=== PATIENT | female | born 1960 | race Caucasian/White ===

== ENCOUNTER 2017-01-03 10:40 | Emergency (ER) | payer BC ==
[~2017-01-03] VITALS: Ht 157.5 cm; Wt 53.1 kg
[2017-01-03 10:40] VITALS: BP_SYST 145
[2017-01-03] MEDS ORDERED: DIAZEPAM 5 MG TABLET (VALIUM) PO ONE (11:15)
[2017-01-03] MEDS ORDERED: KETOROLAC TROMETHAMINE 60 MG/2 ML VIAL IM ONE (11:15)
[2017-01-03] MEDS ORDERED: OXYCODONE/ACETAMINOPHEN *10*mg/325 mg TABLET PO ONE (11:15)
[2017-01-03 13:23] VITALS: BP_SYST 137
== END 2017-01-03 13:23 | disposition home or self-care (01) ==
LOC: SED 10:40
DX: G89.29 Other chronic pain (principal); M54.5 Low back pain; M54.2 Cervicalgia
CPT/HCPCS: 72050; 72072; 72110; 96372; 99284; J1885

== ENCOUNTER 2019-10-14 09:54 | Emergency (ER) | payer BC ==
[~2019-10-14] VITALS: Ht 157.5 cm; Wt 57.6 kg
[2019-10-14 09:55] VITALS: BP_SYST 127
[2019-10-14 10:57] VITALS: BP_SYST 127
== END 2019-10-14 10:56 | disposition home or self-care (01) ==
LOC: SED 09:54
DX: S63.8X2A Sprain of other part of left wrist and hand, initial encounter (principal); W22.8XXA Striking against or struck by other objects, initial encounter; Y93.01 Activity, walking, marching and hiking; Y92.89 Other specified places as the place of occurrence of the external cause; Y99.8 Other external cause status
CPT/HCPCS: 99283; J7030

== ENCOUNTER 2020-11-07 09:30 | Emergency (ER) | payer BC ==
[~2020-11-07] VITALS: Ht 157.5 cm; Wt 49.0 kg
[2020-11-07 09:35] VITALS: BP_SYST 114
--- NOTE | 2020-11-07 09:40 | NUR ---
Placed in room 7 . Placed on school bus monitor, blood pressure machine and pulse oximeter. To gown for exam. Side rails up.
[2020-11-07] MEDS ORDERED: EPINEPHrine 1 MG/ML AMP IM ONE (10:00)
--- NOTE | 2020-11-07 10:00 | NUR ---
ER DR. KOTHARI AT THE BEDSIDE EXAMINING PT
--- NOTE | 2020-11-07 10:05 | NUR ---
PT CAME IN FROM HOME C/O FACIAL SWELLING, REDNESS AND ITCHINESS TO SCALP, EYES, EARS X 1.5 WEEKS. STATES SHE WAS IN [place] IN [place]. UNSURE WHAT SHE CAME IN CONTACT WITH. SAYS SYMPTOMS HAVE GOTTEN WORSE SINCE. PT IS AMBULATORY, AAOX4, V/S STABLE
--- NOTE | 2020-11-07 10:25 | NUR ---
LAB AT THE BEDSIDE FOR BLOOD DRAW
[2020-11-07 10:35] LABS: BASOPHILS % (AUTO) 0.4 % (0.0-2.0); EOSINOPHILS % (AUTO) 0.1 % (0.0-4.0); HEMATOCRIT 39.7 % (36-48); HEMOGLOBIN 13.7 g/dL (12.0-16.0); LYMPHOCYTES # (AUTO) 0.9 K/uL (1.0-5.5); MEAN CORPUSCULAR HEMOGLOBIN 32 pg (27-31); MEAN CORPUSCULAR HGB CONC 35 % (32-36); MEAN CORPUSCULAR VOLUME 91 fL (79.0-98.0); MONOCYTES # (AUTO) 0.7 K/uL (0.0-1.0); MONOCYTES % (AUTO) 7.1 % (1.7-9.3); NEUTROPHILS # (AUTO) 7.6 K/uL (1.8-7.7); NEUTROPHILS % (AUTO) 82.4 % (40.0-70.0); PLATELET COUNT (AUTO) 206 K/uL (130-430); RED BLOOD CELL COUNT(AUTO) 4.37 MIL/uL (4.2-6.2); RED CELL DISTRIBUTION WIDTH 14.3 % (9.0-15.0); WHITE BLOOD COUNT (AUTO) 9.3 K/uL (4.8-10.8)
[2020-11-07 10:48] LABS: CALCIUM 9.2 mg/dL (8.4-11.0); CREATININE 0.81 mg/dL (0.55-1.30); POTASSIUM 3.5 mmol/L (3.5-5.1)
--- NOTE | 2020-11-07 10:49 | NUR ---
PT REPORTS IMPROVEMENT IN ITCHINESS AND REDNESS AND SWELLING HAVE DECREASED
[2020-11-07 10:53] LABS: TOTAL BILIRUBIN 0.5 mg/dL (0.0-1.0)
[2020-11-07 11:25] LABS: C-REACTIVE PROTEIN QUANT 19.3 mg/dL (0-0.5)
[2020-11-07] MEDS ORDERED: PRED10TA PO (11:42)
[2020-11-07] MEDS ORDERED: DIPH25CA83 PO (11:42)
[2020-11-07 11:52] VITALS: BP_SYST 114
--- NOTE | 2020-11-07 11:54 | NUR ---
Patient given written and verbal discharge instructions and verbalizes understanding. ER MD discussed with patient the results and treatment provided. Patient in stable condition. ID arm band removed. Rx of BENADRYL AND PREDNISONE given. Patient educated on pain management and to follow up with PMD. Pain Scale 0/10. Opportunity for questions provided and answered. Medication side effect fact sheet provided.
[2020-11-08] MEDS ORDERED: EPIN0.3P3 IM (18:00)
[2020-11-08] MEDS ORDERED: PRED20TA PO (18:00)
== END 2020-11-07 11:52 | disposition home or self-care (01) ==
LOC: SED 09:30
DX: L25.9 Unspecified contact dermatitis, unspecified cause (principal)
CPT/HCPCS: 36415; 80053; 85025; 86140; 96372; 99283; J0171

== ENCOUNTER 2020-11-08 15:11 | Emergency (ER) | payer BC ==
[~2020-11-08] VITALS: Ht 157.5 cm; Wt 57.6 kg
[~2020-11-08 15:11] MED LIST: DIPH25CA83 PO; PRED10TA PO
[2020-11-08 15:25] VITALS: BP_SYST 117
--- NOTE | 2020-11-08 15:25 | NUR ---
Patient to ER bed 02 to gown for evaluation. Side rails up.
--- NOTE | 2020-11-08 15:30 | NUR ---
Pt brought by , A&Ox4, pt presents to ER with facial swelling and redness x 7 days, pt afebrile, 02 WNL, skin pink and warm, cap refill <3.
[2020-11-08] MEDS ORDERED: FAMOTIDINE PF 20 MG/2 ML VIAL IVP ONE (16:00)
[2020-11-08] MEDS ORDERED: methylPREDNISolone SOD SUCC/PF 62.5 MG/ML VIAL IVP ONE (16:00)
--- NOTE | 2020-11-08 16:10 | NUR ---
DR HESTER IN TO ASSESS
--- NOTE | 2020-11-08 16:30 | NUR ---
C/O FACIAL SWELLING 5 DAYS WITH VISIT TO ER YESTERDAY, INCREASED SWELLING TODAY, NO DIFFICULTY BREATHING, RESP UNLABORED, SKIN WARM AND DRY REDNESS AND SWELLING TO EYES AND FACE
--- NOTE | 2020-11-08 16:59 | NUR ---
COMMUNICATES CLEARLY, DNIES SOB/CP/ AT BEDSIDE
[2020-11-08 17:56] VITALS: BP_SYST 136
--- NOTE | 2020-11-08 17:57 | NUR ---
Patient given written and verbal discharge instructions and verbalizes understanding. ER MD discussed with patient the results and treatment provided. Patient in stable condition. ID arm band removed. IV catheter removed intact and dressing applied, no active bleeding. Rx of given. Patient educated on pain management and to follow up with PMD. Pain Scale 0/10 Opportunity for questions provided and answered. Medication side effect fact sheet provided.
[2020-11-08] MEDS ORDERED: EPIN0.3P3 IM (18:00)
[2020-11-08] MEDS ORDERED: PRED20TA PO (18:00)
== END 2020-11-08 17:56 | disposition home or self-care (01) ==
LOC: SED 15:11
DX: T78.40XA Allergy, unspecified, initial encounter (principal); Z79.899 Other long term (current) drug therapy; X58.XXXA Exposure to other specified factors, initial encounter
CPT/HCPCS: 96374; 96375; 99284; J2930; J3490

== ENCOUNTER 2021-01-29 11:13 | Emergency (ER) | payer BC ==
[~2021-01-29] VITALS: Ht 157.5 cm; Wt 45.8 kg
[~2021-01-29 11:13] MED LIST changes: +EPIN0.3P3 IM; +PRED20TA PO
[2021-01-29 11:39] VITALS: BP_SYST 123
--- NOTE | 2021-01-29 12:05 | NUR ---
PLACED INBED 7, EXAMINED BY DR. KOTHARI
[2021-01-29 12:24] LABS: BASOPHILS % (AUTO) 0.6 % (0.0-2.0); EOSINOPHILS # (AUTO) 0.1 K/uL (0.0-0.4); EOSINOPHILS % (AUTO) 0.7 % (0.0-4.0); HEMATOCRIT 41.6 % (36-48); HEMOGLOBIN 14.1 g/dL (12.0-16.0); LYMPHOCYTES # (AUTO) 1.7 K/uL (1.0-5.5); LYMPHOCYTES % (AUTO) 23.3 % (20.5-51.5); MEAN CORPUSCULAR HEMOGLOBIN 31 pg (27-31); MEAN CORPUSCULAR HGB CONC 34 % (32-36); MEAN CORPUSCULAR VOLUME 93 fL (79.0-98.0); MONOCYTES # (AUTO) 0.5 K/uL (0.0-1.0); MONOCYTES % (AUTO) 7.6 % (1.7-9.3); NEUTROPHILS # (AUTO) 4.8 K/uL (1.8-7.7); NEUTROPHILS % (AUTO) 67.8 % (40.0-70.0); PLATELET COUNT (AUTO) 300 K/uL (130-430); RED CELL DISTRIBUTION WIDTH 13.8 % (9.0-15.0); WHITE BLOOD COUNT (AUTO) 7.1 K/uL (4.8-10.8)
[2021-01-29 12:38] LABS: ANION GAP 7 (5-15); CALCIUM 8.6 mg/dL (8.4-11.0); CHLORIDE 102 mmol/L (98-107); CREATININE 0.84 mg/dL (0.55-1.30); GLUCOSE 104 mg/dL (70-99); POTASSIUM 4.1 mmol/L (3.5-5.1); SODIUM SERUM 134 mmol/L (136-145); UREA NITROGEN, BLOOD 15 mg/dL (8-21)
--- NOTE | 2021-01-29 12:49 | NUR ---
Pt. came in today with complaints of multiple intact sores to top of head that are itchy and painful 09/17, stated it started about 4 to 6 weeks ago and now has hair loss, has been taking aleve for pain and nothing for the itchiness, sores vissible and hair loss signifigant
[2021-01-29 12:51] LABS: ALANINE AMINOTRANSFERASE 17 U/L (12-78); ALBUMIN 4.2 g/dL (3.4-4.8); ASPARTATE AMINOTRANSFERASE 14 U/L (10-37); TOTAL BILIRUBIN 0.2 mg/dL (0.0-1.0)
[2021-01-29 13:07] LABS: C-REACTIVE PROTEIN QUANT < 0.2 mg/dL (0-0.5); GFR AFRICAN AMERICAN 89 mL/min (>90)
[2021-01-29] MEDS ORDERED: FLUC200T PO (13:46)
[2021-01-29] MEDS ORDERED: TERB250T50 PO (13:55)
--- NOTE | 2021-01-29 14:02 | NUR ---
Dr. Dillard discussed treatment for rash
[2021-01-29 14:14] VITALS: BP_SYST 135
--- NOTE | 2021-01-29 14:15 | NUR ---
Patient given written and verbal discharge instructions and verbalizes understanding. Dr. harrell discussed with patient the results and treatment provided. Patient in stable condition. ID arm band removed. Rx of Terbinafine given. Patient educated on pain management and to follow up with PMD. Pain Scale 2. Opportunity for questions provided and answered. Medication side effect fact sheet provided.
== END 2021-01-29 14:14 | disposition home or self-care (01) ==
LOC: SED 11:13
DX: B35.0 Tinea barbae and tinea capitis (principal); Z79.899 Other long term (current) drug therapy
CPT/HCPCS: 36415; 80053; 83605; 85025; 86140; 99283

== ENCOUNTER 2021-02-03 12:48 | Emergency (ER) | payer BC ==
[~2021-02-03] VITALS: Ht 157.5 cm; Wt 46.7 kg
[2021-02-03 12:48] VITALS: BP_SYST 142
[~2021-02-03 12:48] MED LIST changes: +TERB250T50 PO
--- NOTE | 2021-02-03 12:48 | NUR ---
BROUGHT BACK TO BED #6 AND TRIAGED. REPORT GIVEN TO [place]
--- NOTE | 2021-02-03 12:50 | NUR ---
Pt triaged and placed in room 6.
--- NOTE | 2021-02-03 12:51 | NUR ---
Patient alert and oriented to person, place, time and situation. Chief complaint: Scalp growths that are "very itchy" and "very painful." Pain 8/10. PMH L shoulder reconstruction. NKDA. VSS. Will continue to monitor.
--- NOTE | 2021-02-03 12:52 | NUR ---
Dr Dillard at bedside to evaluate patient.
[2021-02-03 13:15] LABS: BASOPHILS # (AUTO) 0.1 K/uL (0.0-0.2); BASOPHILS % (AUTO) 0.8 % (0.0-2.0); EOSINOPHILS # (AUTO) 0.1 K/uL (0.0-0.4); EOSINOPHILS % (AUTO) 0.9 % (0.0-4.0); HEMATOCRIT 43.7 % (36-48); HEMOGLOBIN 14.6 g/dL (12.0-16.0); LYMPHOCYTES # (AUTO) 2.3 K/uL (1.0-5.5); LYMPHOCYTES % (AUTO) 30.8 % (20.5-51.5); MEAN CORPUSCULAR HEMOGLOBIN 31 pg (27-31); MEAN CORPUSCULAR HGB CONC 34 % (32-36); MEAN CORPUSCULAR VOLUME 93 fL (79.0-98.0); MONOCYTES # (AUTO) 0.5 K/uL (0.0-1.0); MONOCYTES % (AUTO) 7.2 % (1.7-9.3); NEUTROPHILS # (AUTO) 4.4 K/uL (1.8-7.7); NEUTROPHILS % (AUTO) 60.3 % (40.0-70.0); PLATELET COUNT (AUTO) 342 K/uL (130-430); RED BLOOD CELL COUNT(AUTO) 4.72 MIL/uL (4.2-6.2); RED CELL DISTRIBUTION WIDTH 13.6 % (9.0-15.0); WHITE BLOOD COUNT (AUTO) 7.3 K/uL (4.8-10.8)
--- NOTE | 2021-02-03 13:15 | NUR ---
Patient given written and verbal discharge instructions and verbalizes understanding. ER MD discussed with patient the results and treatment provided. Patient in stable condition. ID arm band removed. Patient educated on pain management and to follow up with PMD. Pain scale 8/10. Opportunity for questions provided and answered.
[2021-02-03 13:18] VITALS: BP_SYST 142
[2021-02-03 13:42] LABS: C-REACTIVE PROTEIN QUANT < 0.2 mg/dL (0-0.5)
[2021-02-03 14:04] LABS: ANION GAP 8 (5-15); CALCIUM 10.1 mg/dL (8.4-11.0); CHLORIDE 103 mmol/L (98-107); CREATININE 0.87 mg/dL (0.55-1.30); GLUCOSE 77 mg/dL (70-99); POTASSIUM 3.8 mmol/L (3.5-5.1); SODIUM SERUM 140 mmol/L (136-145); UREA NITROGEN, BLOOD 16 mg/dL (8-21)
[2021-02-03 14:15] LABS: ALANINE AMINOTRANSFERASE 21 U/L (12-78); ALBUMIN 4.1 g/dL (3.4-4.8); ASPARTATE AMINOTRANSFERASE 15 U/L (10-37); TOTAL BILIRUBIN 0.4 mg/dL (0.0-1.0)
[2021-02-03 14:27] LABS: GFR AFRICAN AMERICAN 85 mL/min (>90)
== END 2021-02-03 13:15 | disposition home or self-care (01) ==
LOC: SED 12:48
DX: B35.0 Tinea barbae and tinea capitis (principal); Z79.899 Other long term (current) drug therapy
CPT/HCPCS: 36415; 80053; 83605; 85025; 86140; 99283

== ENCOUNTER 2022-08-13 11:39 | Emergency (ER) | payer BC ==
[~2022-08-13] VITALS: Ht 160 cm; Wt 49.4 kg
[~2022-08-13 11:39] MED LIST changes: -TERB250T50 PO; +TERB250T89 PO
[2022-08-13 11:42] VITALS: BP_SYST 173
--- NOTE | 2022-08-13 13:25 | NUR ---
CXR ORDERED. REQUEST FROM CLINIC. PT REMAINS STABLE. SKINS NORMAL FOR ETHNICITY.
--- NOTE | 2022-08-13 14:45 | NUR ---
bibs for cough x 2 weeks. referred by pcp. requesting for ct. denies chest pain,n,v,fever, sob. resp even and nonlabored. vss. spo2 98 %. speaks f/c sentences. denies med hx. aaox4. ambulatory
[2022-08-13] MEDS ORDERED: ENALAPRILAT DIHYDRATE 1.25 MG/ML VIAL IVP ONE (16:00)
[2022-08-13 16:21] LABS: BASOPHILS # (AUTO) 0.1 K/uL (0.0-0.2); BASOPHILS % (AUTO) 0.9 % (0.0-2.0); EOSINOPHILS # (AUTO) 0.1 K/uL (0.0-0.4); EOSINOPHILS % (AUTO) 1.1 % (0.0-4.0); HEMATOCRIT 42.9 % (36-48); HEMOGLOBIN 14.5 g/dL (12.0-16.0); LYMPHOCYTES # (AUTO) 1.7 K/uL (1.0-5.5); LYMPHOCYTES % (AUTO) 21.6 % (20.5-51.5); MEAN CORPUSCULAR HEMOGLOBIN 32 pg (27-31); MEAN CORPUSCULAR HGB CONC 34 % (32-36); MEAN CORPUSCULAR VOLUME 94 fL (79.0-98.0); MONOCYTES # (AUTO) 0.6 K/uL (0.0-1.0); MONOCYTES % (AUTO) 7.4 % (1.7-9.3); NEUTROPHILS # (AUTO) 5.4 K/uL (1.8-7.7); PLATELET COUNT (AUTO) 308 K/uL (130-430); RED BLOOD CELL COUNT(AUTO) 4.59 MIL/uL (4.2-6.2); RED CELL DISTRIBUTION WIDTH 14.2 % (9.0-15.0); WHITE BLOOD COUNT (AUTO) 7.8 K/uL (4.8-10.8)
[2022-08-13 16:22] LABS: ANION GAP 11 (5-15); CALCIUM 9.4 mg/dL (8.4-11.0); CHLORIDE 95 mmol/L (98-107); CREATININE 0.74 mg/dL (0.55-1.30); GFR AFRICAN AMERICAN 103 mL/min (>90); GLUCOSE 78 mg/dL (70-99); UREA NITROGEN, BLOOD 20 mg/dL (8-21)
[2022-08-13 16:29] LABS: ALANINE AMINOTRANSFERASE 26 U/L (12-78); ALBUMIN 4.3 g/dL (3.4-4.8); ASPARTATE AMINOTRANSFERASE 29 U/L (10-37); TOTAL BILIRUBIN 0.4 mg/dL (0.0-1.0)
--- NOTE | 2022-08-13 17:09 | NUR ---
BLOOD PRESSURE IMPROVED. AAO X4. RESP EVEN AND NONLABORED. VSS. NO SOB. PENDING DISPO
[2022-08-13] MEDS ORDERED: AMLO5TAB92 PO (17:21)
[2022-08-13] MEDS ORDERED: BUDE90AE IH (17:21)
[2022-08-13 17:25] VITALS: BP_SYST 140
--- NOTE | 2022-08-13 17:25 | NUR ---
Patient given written and verbal discharge instructions and verbalizes understanding. ER MD discussed with patient the results and treatment provided. Patient in stable condition. ID arm band removed. IV catheter removed intact and dressing applied, no active bleeding. Patient educated on pain management and to follow up with PMD. Pain Scale . Opportunity for questions provided and answered. Medication side effect fact sheet provided. AMBULATORY WITH STEADY GAIT
== END 2022-08-13 17:25 | disposition home or self-care (01) ==
LOC: SED 11:39
DX: J45.909 Unspecified asthma, uncomplicated (principal); R05.9 Cough, unspecified; I10 Essential (primary) hypertension; Z79.899 Other long term (current) drug therapy
CPT/HCPCS: 36415; 71046-TC; 71250-TC; 76376; 80053; 84484; 85025; 93005; 96374; 99285